=== PATIENT | male | born 1985 | race Caucasian/White ===

== ENCOUNTER 2022-04-18 06:44 | Day surgery (SDC) | payer BC ==
[~2022-04-18] VITALS: Ht 180.3 cm; Wt 172.4 kg
[2022-04-18] MEDS ORDERED: SIMETHICONE 40 MG/0.6 ML ML ONE (07:14)
[2022-04-18] MEDS ORDERED: fentaNYL CITRATE/PF 100 MCG/2 ML AMP ONE (07:14)
[2022-04-18] MEDS ORDERED: MIDAZOLAM HCL 5 MG/5 ML VIAL ONE ×2 (07:14→08:40)
[2022-04-18] MEDS ORDERED: DIPHENHYDRAMINE INJ 50 MG/ML VIAL ONE (08:38)
[2022-04-19 14:33] VITALS: BP_SYST 149
== END 2022-04-18 10:05 | disposition home or self-care (01) ==
LOC: SDS 06:44 → STU 06:57 → SDS 10:05
PROVIDERS: ATTEND Internal Medicine
DX: Z09 Encounter for follow-up examination after completed treatment for conditions other than malignant neoplasm (principal); K51.90 Ulcerative colitis, unspecified, without complications; R11.2 Nausea with vomiting, unspecified; K52.9 Noninfective gastroenteritis and colitis, unspecified; Z20.822 Contact with and (suspected) exposure to COVID-19; Z79.899 Other long term (current) drug therapy
CPT/HCPCS: 36415 ×2; 45380; 45385; 43235; 87426; 82962; 88305; 99152; 99153; U0003; G0378; J1200; J2250; J3010; C1889 ×2; 45381; 45384